=== PATIENT | female | born 1970 | race Caucasian/White ===

== ENCOUNTER 2018-09-14 07:34 | Day surgery (SDC) | payer BC ==
[~2018-09-14] VITALS: Ht 152.4 cm; Wt 54.5 kg
[~2018-09-14 07:34] MED LIST: LOSA50TA64 PO; RINGERS SOLUTION,LACTATED 1,000 ML IV ONE
[2018-09-14] MEDS ORDERED: ONDANSETRON HCL 4 MG/2 ML VIAL IVP ONE (07:35)
[2018-09-14] MEDS ORDERED: LIDOCAINE/PF 2% 5 ML VIAL IM ONE (07:35)
[2018-09-14] MEDS ORDERED: MIDAZOLAM HCL 2 MG/2 ML VIAL IVP ONE (07:35)
[2018-09-14] MEDS ORDERED: KETOROLAC TROMETHAMINE 60 MG/2 ML VIAL IM ONE (07:35)
[2018-09-14] MEDS ORDERED: DEXAMETHASONE SOD PHOS 4 MG/ML VIAL IVP ONE (07:35)
[2018-09-14] MEDS ORDERED: PROPOFOL 1% 20 ML VIAL IVP ONE (07:35)
[2018-09-14] MEDS ORDERED: PHENYLEPHRINE HCL 10 MG/ML VIAL IVP ONE (07:35)
[2018-09-14] MEDS ORDERED: METOCLOPRAMIDE HCL 5 MG/ML 2 ML VIAL IVP ONE (07:35)
[2018-09-14] MEDS ORDERED: FentaNYL CITRATE-PF 100 MCG/2 ML VIAL IVP ONE (07:35)
[2018-09-14] MEDS ORDERED: BUPIVACAINE 0.25%/EPI 1:200,000/PF 10 ML VIAL ONE (08:50)
[2018-09-14] MEDS ORDERED: SILVER NITRATE APPLICATOR 1 EA STICK TP ONE (08:50)
[2018-09-14] MEDS ORDERED: FentaNYL CITRATE-PF 100 MCG/2 ML VIAL IVP PRN (09:00)
[2018-09-14] MEDS ORDERED: MEPERIDINE-PF 25 MG/ML VIAL IVP PRN (09:00)
[2018-09-14] MEDS ORDERED: HYDROmorphone 2 MG/ML SYRINGE IVP PRN (09:00)
[2018-09-14] MEDS ORDERED: RINGERS SOLUTION,LACTATED 1,000 ML IV ONE (09:57)
[2018-09-14] MEDS ORDERED: HEPARIN SODIUM,PORCINE 5,000 UNITS/ML VIAL ONE (09:58)
[2018-09-14] MEDS ORDERED: SODIUM CHLORIDE 0.9% 250 ML IV ONE (09:58)
[2018-09-14] MEDS ORDERED: FERRIC SUBSULFATE SOLUTION 8 ML BOTTLE TP ONE (10:45)
[2018-09-14] MEDS ORDERED: OXYGEN THERAPY IH SCH (20:00)
== END 2018-09-14 12:10 | disposition home or self-care (01) ==
LOC: SURGERY 07:34
PROVIDERS: ATTEND Obstetrics & Gynecology
DX: D06.0 Carcinoma in situ of endocervix (principal); N72 Inflammatory disease of cervix uteri; K21.9 Gastro-esophageal reflux disease without esophagitis; I10 Essential (primary) hypertension; Z79.899 Other long term (current) drug therapy; Z90.710 Acquired absence of both cervix and uterus
CPT/HCPCS: 57522; 84703; 88305; 88309; 88342; J1100; J1644; J1885; J2250; J2370; J2405; J2704; J2765; J3010; J3490 ×2; J7050; J7120; 88321; 88341